=== PATIENT | female | born 1940 | race Caucasian/White ===

== ENCOUNTER → 2017-02-12 | Outpatient (CLI) | payer OTHER ==
[~2017-02-12] MED LIST: ASPIRIN PO; ASPIRIN81 M2 PO; BACTRIM DS TABL1 TAB PO; BYETTA10 MCG/0.0 INJ; CELEXA PO; CERTAGEN PO; DOC-Q-LACE100 MG PO; FERROUS SULFATE PO; FLAGYL PO; LEVAQUIN PO; LEVEMIR100 UNITS/ SQ; LEXAPRO PO; LISINOPRIL-HCTZ1 T14 PO; LISINOPRIL20 MG PO; METFORMIN PO; MULTI VITAMIN1 EACH PO; NOVOLOG100 U/M2 SQ; PERCOCET5/325 PO; PRAVACHOL PO; PRAVASTATIN SOD40 MG PO; PRILOSEC PO; VESICARE PO; VITAMIN D32000 UNIT PO; XARELTO10 MG PO; ZESTORETIC 20/11 TAB PO; ZOCOR PO
--- NOTE | ~2017-02-12 | MY11 ---
[facility] A Service of [facility] / [facility] RADIOLOGY TEXT RESULTS PATIENT: JOHN COLBERT LOCATION: [facility] : 42 UNIT #: [id number] AGE: [address]: Sandhya Hood SEX: F ORDER DR: [id number] [facility] [address] [place], [place] [address] [id number] O MR#: [id number] Acc #: [id number] NAME: JOHN COLBERT : 1940 SEX: F STUDY DATE/TIME: 02/12/2017 11:45 UNIT: [facility] ROOM: STUDY DESCRIPTION: MY Mammogram Screening Dig Heladio Attending Physician: Sandhya Hood A.P.R.N. Referring Physician: Sandhya Hood A.P.R.N. Ordering Physician: Sandhya Hood A.P.R.N. Primary Care Physician: Olivia Lorenzo M.D. MEDICAL IMAGING REPORT This report is preliminary unless electronic signature is present EXAM Digital screening mammogram. DATE OF EXAM 02/12/2017 LOCATION [facility]. HISTORY 76-year-old woman, no risk elevation. Annual screen. COMPARISON Mammograms date to 11/26/2005, with most recent 02/10/2016. TECHNIQUE Digital imaging of each breast was completed utilizing screening protocol. Review includes FDA-approved CAD device. FINDINGS Breast parenchyma is predominantly fatty replaced bilaterally. Dense course solitary calcification is stable upper/outer quadrant left breast. I see no suspicious mass characteristics. There are no microcalcifications and no architectural distortion. Mild focal parenchymal density dominance is stable upper/outer quadrant left breast. IMPRESSION Negative mammogram. Annual screening recommended. Patients over the age of 40 are entered into a reminder system with target due date for the next mammogram. A result letter will also be sent to the patient. [facility] A Service of [facility] RADIOLOGY TEXT RESULTS PATIENT: JOHN COLBERT LOCATION: [facility] : 42 UNIT #: [id number] AGE: [address]: Sandhya Hood SEX: F ORDER DR: SERA: 1 Negative. Dictated by... Rodney Snowden M.D. THIS IS AN ELECTRONICALLY VERIFIED REPORT Rodney Snowden M.D. at 02/15/2017 8:09 AM ANGELINA/evaristo TD: 02/12/2017 15:59 JOB #: [id number] MEDICAL IMAGING REPORT Page 1 of 1 COPY
== END | disposition home or self-care (01) ==
LOC: CWCC 11:17
DX: Z12.31 Encounter for screening mammogram for malignant neoplasm of breast (principal)
CPT/HCPCS: G0202